=== PATIENT | female | born 1950 | race Hispanic/Latino ===

== ENCOUNTER 2019-08-05 15:46 | Emergency (ER) | payer MEDICARE ==
[~2019-08-05] VITALS: Ht 152.4 cm; Wt 104.3 kg
[2019-08-05] MEDS ORDERED: TRADJENTA5 MG PO (16:27)
[2019-08-05] MEDS ORDERED: METFORMIN HCL850 MG PO (16:27)
[2019-08-05] MEDS ORDERED: GLIPIZIDE5 MG PO (16:27)
[2019-08-05] MEDS ORDERED: LEVOTHYROXINE75 MCG PO (16:27)
[2019-08-05] MEDS ORDERED: IRBESARTAN150 MG PO (16:27)
[2019-08-05 16:40] LABS: BASOPHILS % 0.2 % (0.0-1.0); HEMATOCRIT 36.5 % (34.2-44.1); HEMOGLOBIN 13.1 g/dL (12.0-16.0); LYMPHOCYTES # (AUTO) 0.8 (1.0-3.2); LYMPHOCYTES % 4.5 % (18.0-39.1); MEAN CORPUSCULAR HGB CONC 35.9 g/dL (31-35); MEAN CORPUSCULAR VOLUME 83.7 fL (81-99); MONOCYTES % 5.4 % (4.4-11.3); NEUTROPHILS # (AUTO) 15.9 (2.1-6.9); NEUTROPHILS % 89.2 % (38.7-80.0); PLATELET COUNT 298 x10e3/uL (140-360); RED BLOOD COUNT 4.36 x10e6/uL (3.6-5.1); RED CELL DISTRIBUTION WIDTH 12.3 % (11.7-14.4)
[2019-08-05 16:52] LABS: INR 0.94; PROTHROMBIN TIME 13.1 seconds (11.9-14.5)
[2019-08-05 16:53] LABS: PARTIAL THROMBOPLASTIN TIME 23.5 seconds (23.8-35.5)
[2019-08-05 17:03] LABS: ALANINE AMINOTRANSFERASE 25 IU/L (0-55); ALBUMIN 3.9 g/dL (3.5-5.0); ALBUMIN/GLOBULIN RATIO 1.1 (0.8-2.0); ALKALINE PHOSPHATASE 54 IU/L (40-150); AMYLASE 63 U/L (25-125); ANION GAP 15.7 mmol/L (8-16); BLOOD UREA NITROGEN 27 mg/dL (7-26); BUN/CREATININE RATIO 30 (6-25); CALCIUM 9.5 mg/dL (8.4-10.2); CARBON DIOXIDE 27 mmol/L (22-29); CHLORIDE 102 mmol/L (98-107); CREATINE KINASE 536 IU/L (29-168); CREATININE, SERUM 0.91 mg/dL (0.57-1.11); EST GLOMERULAR FILTRATION RATE > 60 ML/MIN (60-); GLUCOSE 265 mg/dL (74-118); LIPASE 24 U/L (8-78); MAGNESIUM 1.5 MG/DL (1.3-2.1); POTASSIUM 3.7 mmol/L (3.5-5.1); SODIUM 141 mmol/L (136-145)
--- NOTE | 2019-08-05 17:06 | Diagnostic Imaging Report ---
Exam: Head CT without contrast History: Dizziness, nausea, fall Comparison studies: None Technique: Axial images were obtained from the skull base to the vertex. Coronal and sagittal images reconstructed from the axial data. Dose modulation, iterative reconstruction, and/or weight based adjustment of the mA/kV was utilized to reduce the radiation dose to as low as reasonably achievable. Radiation dose: Total DLP: 1494.8 mGy*cm. Estimated effective dose: DLP x 0.015 Intravenous contrast: None Findings: Exam is limited by artifacts related to patient motion. In spite of limitations: Scalp: No abnormalities. Bones: No fractures, blastic or lytic lesions. Brain sulci: Moderately prominent Ventricles: Mild compensatory dilatation. No hydrocephalus. Parenchyma: Mild compensatory dilatation. Peripheral wedge-shaped hypodensity in the left superolateral cerebellum may be an acute to subacute nonhemorrhagic infarct. Cannot further evaluate on this exam. Small chronic lacunar infarct present more superiorly in the left cerebellum. A few small Ill-defined hypodensities in the supratentorial white matter are nonspecific but are most compatible with chronic microvascular ischemic changes. No acute hemorrhage or mass effect. Sellar/suprasellar region: No abnormalities. Craniocervical junction: Patent foramen magnum. No Chiari one malformation. Incidental findings: Chronic inflammatory changes in the right mastoids which are partially opacified with cirrhotic changes. IMPRESSION: Exam limited by artifacts related to patient motion. In spite of limitations: 1. Peripheral left cerebellar hypodensity may reflect acute to subacute infarct. Recommend brain MRI to further evaluate. 2. No acute hemorrhage or other gross acute abnormalities. 3. Moderate generalized brain volume loss. 4. Mild chronic microvascular ischemic changes small chronic left cerebellar lacunar infarct. Signed by: Dr. Fernando Hunt M.D. on 08/05/2019 5:02 PM
[2019-08-05 17:10] LABS: BILIRUBIN,URINE NEGATIVE (NEGATIVE); CLARITY,URINE CLEAR (CLEAR); COLOR,URINE YELLOW (YELLOW); KETONES,URINE 1+ (NEGATIVE); LEUKOCYTE ESTERASE ,URINE NEGATIVE (NEGATIVE); NITRITE,URINE NEGATIVE (NEGATIVE); URINE UROBILINOGEN 0.2 mg/dL (0.2 - 1)
--- NOTE | 2019-08-05 17:12 | Diagnostic Imaging Report ---
History: Trauma, fall Comparison studies: None Technique: Axial images were obtained through the cervical region.. Coronal and sagittal images reconstructed from the axial data.. Intravenous contrast: None Findings: Fractures: None. Atlantoaxial articulation: Intact. Alignment: Straightened cervical curvature may be positional. Cervicomedullary junction: No abnormalities. The foramen magnum is patent. Soft tissues: No gross acute abnormalities. Vertebrae: No fractures, infection or neoplasm. Degenerative changes: Multilevel disc degeneration, mild from C2 to C5 and moderate from C5 to C7. Prominent anterior bridging osteophytes C4 to C7 indent the prevertebral soft tissues. No significant canal stenosis. Moderate facet arthrosis on the left at C2-C3 with lytic changes which may be related to changes of synovitis. Multilevel uncovertebral and facet arthrosis. Moderate left C2-C3 foraminal stenosis due to uncovertebral facet arthrosis. Incidental findings: Partially opacified right mastoids. Atherosclerotic calcifications in the carotid siphons. Anatomical variant retropharyngeal course of the carotid siphons and internal carotid arteries. IMPRESSION: 1. No cervical spine fracture or subluxation. 2. Multilevel degenerative changes as described. 3. Ligament, spinal cord and or vascular abnormalities cannot be excluded on the basis of this examination Signed by: Dr. Fernando Hunt M.D. on 08/05/2019 5:09 PM
[2019-08-05 17:14] LABS: PROTEIN,URINE DIPSTICK 3+ (NEGATIVE)
[2019-08-05 17:25] LABS: RBC,URINE >50 /HPF (0-5); WBC,URINE (MAN) 0-5 /HPF (0-5)
[2019-08-05] MEDS: SODIUM CHLORIDE 0.9% 1000ML 1,000 ML IV SCH (17:29)
[2019-08-05] MEDS: PANTOPRAZOLE 40 MG 10ML VIAL IV ONE (17:29)
--- NOTE | 2019-08-05 18:21 | Diagnostic Imaging Report ---
EXAMINATION: CHEST SINGLE (PORTABLE) INDICATION:^fall, possible dizziness COMPARISON: None FINDINGS: AP view LUNGS: There are low lung volumes There is mild prominence of the central pulmonary vasculature, consistent with pulmonary venous congestion. PLEURA: No pleural effusion or pneumothorax. HEART AND MEDIASTINUM: Cardiac size is mildly enlarged. BONES AND SOFT TISSUES: There are degenerative changes in the thoracic spine. Soft tissues are unremarkable. UPPER ABDOMEN: No free air under the diaphragm. IMPRESSION: Mild pulmonary venous congestion. Signed by: Xander Mcghee MD on 08/05/2019 6:17 PM
--- NOTE | 2019-08-05 18:50 | Diagnostic Imaging Report ---
EXAM: CT Abdomen and Pelvis WITH contrast INDICATION: ^nausa and vomiting COMPARISON: None. TECHNIQUE: Abdomen and pelvis were scanned utilizing a multidetector helical scanner from the lung base to the pubic symphysis after administration of IV contrast. Coronal and sagittal reformations were obtained. Dose modulation, iterative reconstruction, and/or weight based adjustment of the mA/kV was utilized to reduce the radiation dose to as low as reasonably achievable. Routine protocol was performed. Scan was performed when during portal venous phase. IV CONTRAST: 150 mL of Omnipaque 300 ORAL CONTRAST: Water COMPLICATIONS: None RADIATION DOSE: Total DLP: 862.64 mGy*cm Estimated effective dose: (DLP x 0.015 x size factor) mSv CTDIvol has been reviewed. It is below the limits set by the Radiation Protocol Committee (RPC). FINDINGS: LINES and TUBES: None. LOWER THORAX: There is bibasilar atelectasis. HEPATOBILIARY: No focal hepatic lesions. No biliary ductal dilation. GALLBLADDER: No radio-opaque stones or sludge. No wall thickening. SPLEEN: No splenomegaly. PANCREAS: No focal masses or ductal dilatation. ADRENALS: Left lateral nodule measures 1.8 x 1.7 x 1.5 cm, indeterminate. 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 The upper pole ureter attaches to the superior pole of the bladder with a small diverticulum noted. Multiple nonobstructive bilateral renal calculi are seen measuring up to 1.7 cm on the right. There is no right hydronephrosis. Multiple bilateral cortical scars are seen. GI TRACT: No abnormal distention, wall thickening, or evidence of bowel obstruction. Appendix is normal. PELVIC ORGANS/BLADDER: Unremarkable. LYMPH NODES: No lymphadenopathy. VESSELS: Unremarkable. PERITONEUM / RETROPERITONEUM: No free air or fluid. BONES: Unremarkable. SOFT TISSUES: There is a small fat containing para-umbilical hernia. 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 No calculus is noted throughout the course of ureter. Multiple nonobstructive bilateral renal calculi are seen measuring up to 1.7 cm on the right. Signed by: Xander Mcghee MD on 08/05/2019 6:47 PM
[2019-08-05 18:56] VITALS: BP 145/92
--- NOTE | 2019-08-05 18:58 | NUR ---
report given to rina retana at [facility]
--- NOTE | 2019-08-05 19:00 | NUR ---
transport called for pt eta 30-45 min
[2019-08-05] MEDS ORDERED: SODIUM CHLORIDE 0.9% 50ML 50 ML ONE (20:20)
[2019-08-05] MEDS ORDERED: IOPAMIDOL 370 MG/ML 200 ML INFUS..BTL INJ ONE (20:20)
--- NOTE | 2019-08-05 20:45 | NUR ---
[facility] HERE AT THIS TIME FOR PT TRANSPORT TO [facility].
== END 2019-08-05 20:56 | disposition other institution (70) ==
LOC: ER 15:46
DX: S00.83XA Contusion of other part of head, initial encounter (principal); S00.531A Contusion of lip, initial encounter; M62.82 Rhabdomyolysis; I63.9 Cerebral infarction, unspecified; W01.0XXA Fall on same level from slipping, tripping and stumbling without subsequent striking against object, initial encounter; Y92.008 Other place in unspecified non-institutional (private) residence as the place of occurrence of the external cause; I10 Essential (primary) hypertension; E11.9 Type 2 diabetes mellitus without complications; E03.9 Hypothyroidism, unspecified
CPT/HCPCS: 36415; 70450; 71045; 72125; 74177; 80053; 81001; 82150; 82270; 82550; 82553; 82948; 83690; 83735; 83880; 84484; 85025; 85610; 85730; 86850; 86900; 87086; 93005; 99285; C9113; J7030; Q9967

== ENCOUNTER 2020-10-15 21:11 | Inpatient (IN) | payer MEDICARE, OTHER ==
[~2020-10-15] VITALS: Ht 152.4 cm; Wt 104.3 kg
[~2020-10-15 21:11] MED LIST: GLIPIZIDE5 MG PO; IRBESARTAN150 MG PO; LEVOTHYROXINE75 MCG PO; METFORMIN HCL850 MG PO; TRADJENTA5 MG PO
[2020-10-15] MEDS ORDERED: SODIUM CHLORIDE 0.9% 1000ML 1,000 ML IV STA (21:15)
[2020-10-15] MEDS ORDERED: ONDANSETRON HCL INJ 2MG/ML 2ML 2 MG/ML VIAL IV STA (21:15)
[2020-10-15] MEDS ORDERED: KETOROLAC TROMETHAMINE 30 MG/ML VIAL IV STA (21:18)
[2020-10-15] MEDS ORDERED: ACETAMINOPHEN 1000 MG/100 ML 100 ML IV ONE (22:01)
[2020-10-15] MEDS ORDERED: PIPER-TAZ 3.375 GM 50 ML IV STA (22:02)
[2020-10-15 22:17] LABS: BASOPHILS % 0.3 % (0.0-1.0); HEMATOCRIT 27.8 % (34.2-44.1); HEMOGLOBIN 9.4 g/dL (12.0-16.0); LYMPHOCYTES # (AUTO) 0.1 (1.0-3.2); LYMPHOCYTES % 0.8 % (18.0-39.1); MEAN CORPUSCULAR HEMOGLOBIN 28.5 pg (28-32); MEAN CORPUSCULAR HGB CONC 33.8 g/dL (31-35); MEAN CORPUSCULAR VOLUME 84.2 fL (81-99); MONOCYTES % 0.3 % (4.4-11.3); NEUTROPHILS # (AUTO) 9.4 (2.1-6.9); NEUTROPHILS % 98.2 % (38.7-80.0); PLATELET COUNT 347 x10e3/uL (140-360); RED CELL DISTRIBUTION WIDTH 13.2 % (11.7-14.4)
[2020-10-15 22:38] LABS: ALBUMIN 2.8 g/dL (3.5-5.0); ALBUMIN/GLOBULIN RATIO 0.6 (0.8-2.0); ANION GAP 20.7 mmol/L (8-16); CALCIUM 7.7 mg/dL (8.4-10.2); CREATININE, SERUM 2.71 mg/dL (0.57-1.11)
[2020-10-15 22:42] LABS: POTASSIUM 5.7 mmol/L (3.5-5.1)
[2020-10-15] MEDS ORDERED: DEXTROSE 50% SYRINGE 50 ML IV STA (23:07)
[2020-10-15] MEDS ORDERED: SOD POLYSTYRENE SULFONATE SUSP 15 GM/60 ML BTL PO STA (23:07)
[2020-10-15] MEDS ORDERED: CALCIUM GLUCONATE 10% INJ 0.465 MEQ/ML VIAL IV STA (23:07)
[2020-10-15] MEDS ORDERED: SODIUM BICARBONATE 8.4% INJ 50 ML SYR IV STA (23:07)
[2020-10-15] MEDS ORDERED: LACTULOSE SYRUP 20 GM/30 ML UDC PO STA (23:07)
[2020-10-15] MEDS ORDERED: SODIUM CHLORIDE 0.9% 1000ML 1,000 ML IV ONE (23:30)
[2020-10-15] MEDS ORDERED: INSULIN REGULAR, HUMAN 100 UNIT/1 ML 3ML VIAL IV ONE (23:30)
[2020-10-16] MEDS ORDERED: SODIUM CHLORIDE 0.9% 1000ML 2,000 ML ONE (00:14)
[2020-10-16 00:23] LABS: CLARITY,URINE CLOUDY (CLEAR); COLOR,URINE YELLOW (YELLOW)
[2020-10-16 00:26] LABS: KETONES,URINE NEGATIVE (NEGATIVE); LEUKOCYTE ESTERASE ,URINE LARGE (NEGATIVE); NITRITE,URINE NEGATIVE (NEGATIVE); PROTEIN,URINE DIPSTICK 2+ (NEGATIVE); URINE UROBILINOGEN 1 mg/dL (0.2 - 1)
[2020-10-16 00:31] LABS: BACTERIA,URINE MODERATE /HPF; EPITHELIAL CELLS,URINE FEW /LPF; WBC,URINE (MAN) >50 /HPF (0-5)
[2020-10-16] MEDS ORDERED: NOREPINEPHRINE 8 MG/D5W 250 ML 250 ML ONE ×2 (00:59→19:42)
[2020-10-16] MEDS ORDERED: NOREPINEPHRINE INJ 4MG/4ML 8 MG in DEXTROSE 5% 250ML 250 ML IV ONE (01:00)
[2020-10-16] MEDS ORDERED: SODIUM CHLORIDE 0.9% 1000ML 1,000 ML IV ONE ×2 (02:00)
[2020-10-16 02:15] VITALS: BP 88/59
[2020-10-16] MEDS ORDERED: ASPIRIN 81 MG CHEW TAB PO ONE (03:45)
[2020-10-16 06:31] LABS: CREATINE KINASE MB 2.5 ng/mL (0-5.0)
[2020-10-16 06:48] LABS: BASOPHILS # (AUTO) 0.1 (0.0-0.1); BASOPHILS % 0.3 % (0.0-1.0); EOSINOPHILS # (AUTO) 0.3 (0.0-0.4); HEMATOCRIT 24.7 % (34.2-44.1); HEMOGLOBIN 8.3 g/dL (12.0-16.0); LYMPHOCYTES # (AUTO) 0.3 (1.0-3.2); LYMPHOCYTES % 1.2 % (18.0-39.1); MEAN CORPUSCULAR HGB CONC 33.6 g/dL (31-35); MEAN CORPUSCULAR VOLUME 86.4 fL (81-99); MONOCYTES % 3.7 % (4.4-11.3); NEUTROPHILS # (AUTO) 23.8 (2.1-6.9); NEUTROPHILS % 92.4 % (38.7-80.0); PLATELET COUNT 301 x10e3/uL (140-360); RED BLOOD COUNT 2.86 x10e6/uL (3.6-5.1); RED CELL DISTRIBUTION WIDTH 13.3 % (11.7-14.4)
[2020-10-16 06:58] LABS: ALBUMIN 2.4 g/dL (3.5-5.0); ALBUMIN/GLOBULIN RATIO 0.9 (0.8-2.0); ANION GAP 17.6 mmol/L (8-16); CREATININE, SERUM 2.48 mg/dL (0.57-1.11); POTASSIUM 4.6 mmol/L (3.5-5.1)
[2020-10-16 07:05] LABS: CALCIUM 6.6 mg/dL (8.4-10.2)
[2020-10-16] MEDS ORDERED: ONDANSETRON HCL INJ 2MG/ML 2ML 2 MG/ML VIAL IV PRN (08:15)
[2020-10-16] MEDS ORDERED: MEROPENEM 500MG/ NS 50ML 500 MG in MEROPENEM 500MG/ NS 50ML 50 ML IV SCH (08:15)
[2020-10-16] MEDS ORDERED: DOCUSATE SODIUM 100 MG CAP PO PRN (08:15)
[2020-10-16] MEDS ORDERED: MELATONIN 5 MG TABLET PO PRN (08:15)
[2020-10-16] MEDS ORDERED: HYDRALAZINE HCL 20 MG/ML VIAL IV PRN (08:15)
[2020-10-16] MEDS ORDERED: BENZONATATE 100 MG CAP PO PRN (08:15)
[2020-10-16] MEDS ORDERED: ALBUTEROL/IPRATROPIUM 3 ML NEB NEB PRN (08:15)
[2020-10-16] MEDS ORDERED: MORPHINE SULFATE INJ 4 MG/ML INJ 1ML IV PRN (08:15)
[2020-10-16] MEDS ORDERED: GUAIFENESIN/CODEINE 10 ML CUP PO PRN (08:15)
[2020-10-16] MEDS ORDERED: SIMETHICONE 80 MG CHEW PO PRN (08:15)
[2020-10-16] MEDS ORDERED: LIDOCAINE 4% PATCH TP PRN (08:15)
[2020-10-16] MEDS ORDERED: DEXTROSE 50% SYRINGE 50 ML IV PRN (08:15)
[2020-10-16] MEDS ORDERED: HYDROCODONE/APAP 5MG-325MG TAB PO PRN (08:15)
[2020-10-16] MEDS ORDERED: ACETAMINOPHEN 325 MG TAB PO PRN (08:15)
[2020-10-16] MEDS ORDERED: DIPHENHYDRAMINE HCL 25 MG CAP PO PRN (08:15)
[2020-10-16] MEDS ORDERED: SODIUM CHLORIDE 0.9% 1000ML 1,000 ML IV SCH (08:15)
[2020-10-16] MEDS ORDERED: SODIUM BICARBONATE 8.4% 150 ML in DEXTROSE 5% 1,000 ML IV SCH (08:30)
[2020-10-16] MEDS ORDERED: CALCIUM GLUCONATE 10% INJ 9.3 MEQ in SODIUM CHLORIDE 0.9% 100 ML 100 ML IV ONE (08:45)
[2020-10-16 09:00] LABS: INR 1.2
[2020-10-16 09:01] LABS: PARTIAL THROMBOPLASTIN TIME 41.4 seconds (23.8-35.5)
[2020-10-16] MEDS ORDERED: MEROPENEM 500MG/ NS 50ML 50 ML IV SCH (12:00)
[2020-10-16] MEDS ORDERED: LIDOCAINE HCL 1% LOCAL INJ 20 ML VIAL ONE (12:50)
[2020-10-16] MEDS ORDERED: SODIUM CHLORIDE 0.9% 250ML 250 ML ONE (12:50)
[2020-10-16 12:58] LABS: CREATINE KINASE MB 1.7 ng/mL (0-5.0)
[2020-10-16] MEDS ORDERED: IOPAMIDOL 300MG/ML 100 ML INFUS..BTL IV ONE (13:44)
[2020-10-16] MEDS ORDERED: FENTANYL CITRATE/PF 100MCG/2 ML INJ ONE (13:55)
[2020-10-16] MEDS ORDERED: MIDAZOLAM HCL 2 MG/2 ML VIAL ONE (13:55)
[2020-10-16] MEDS ORDERED: NOREPINEPHRINE INJ 4MG/4ML 8 MG in DEXTROSE 5% 250ML 250 ML IV PRN (19:45)
[2020-10-16] MEDS ORDERED: NOREPINEPHRINE 8 MG/D5W 250 ML 250 ML IV PRN (19:45)
[2020-10-16] MEDS ORDERED: MORPHINE SULFATE INJ 2 MG/ML SYR IV PRN (20:00)
== END 2020-10-16 19:39 | disposition short-term general hospital (02) | DRG 871 ==
LOC: ER 21:20 → ERHOLD 10-16 03:37
PROVIDERS: ADMIT Internal Medicine; ATTEND Internal Medicine
PROC: 0T9030Z Drainage of Right Kidney with Drainage Device, Percutaneous Approach (ICD-10-PCS; principal; 2020-10-16)
DX: A41.9 Sepsis, unspecified organism (principal); R65.21 Severe sepsis with septic shock; G91.1 Obstructive hydrocephalus; N17.9 Acute kidney failure, unspecified; N13.6 Pyonephrosis; N20.1 Calculus of ureter; I95.9 Hypotension, unspecified; E11.9 Type 2 diabetes mellitus without complications; E86.0 Dehydration; Z86.73 Personal history of transient ischemic attack (TIA), and cerebral infarction without residual deficits; Z20.822 Contact with and (suspected) exposure to COVID-19
CPT/HCPCS: 36415; 36555; 50430; 51700; 70450; 71045; 74176; 74470; 76942; 80053; 81001; 82550; 82553; 83605; 83690; 83880; 84484; 85025; 85610; 85730; 87040; 87071; 87086; 87186; 87205; 93005; 99285; J0610; J1817; J1885; J2001; J2250; J2405; J2543; J3010; J7030; J7050; J7070; J7799; Q9967; U0002

== ENCOUNTER → 2021-01-10 | Day surgery (SDC) | payer MEDICARE, OTHER ==
[2021-01-08 09:32] LABS: BASOPHILS # (AUTO) 0.1 (0.0-0.1); BASOPHILS % 0.7 % (0.0-1.0); EOSINOPHILS # (AUTO) 0.2 (0.0-0.4); EOSINOPHILS % 2.3 % (0.0-6.0); HEMATOCRIT 30.3 % (34.2-44.1); HEMOGLOBIN 10.2 g/dL (12.0-16.0); LYMPHOCYTES # (AUTO) 1.8 (1.0-3.2); MEAN CORPUSCULAR HEMOGLOBIN 28.9 pg (28-32); MEAN CORPUSCULAR HGB CONC 33.7 g/dL (31-35); MEAN CORPUSCULAR VOLUME 85.8 fL (81-99); MONOCYTES # (AUTO) 1.1 (0.2-0.8); MONOCYTES % 10.9 % (4.4-11.3); NEUTROPHILS # (AUTO) 6.9 (2.1-6.9); NEUTROPHILS % 67.6 % (38.7-80.0); PLATELET COUNT 281 x10e3/uL (140-360); RED BLOOD COUNT 3.53 x10e6/uL (3.6-5.1); RED CELL DISTRIBUTION WIDTH 13.4 % (11.7-14.4)
[2021-01-08 09:50] LABS: ANION GAP 14.1 mmol/L (8-16); BLOOD UREA NITROGEN 41 mg/dL (7-26); BUN/CREATININE RATIO 46 (6-25); CALCIUM 8.2 mg/dL (8.4-10.2); CARBON DIOXIDE 24 mmol/L (22-29); CHLORIDE 103 mmol/L (98-107); EST GLOMERULAR FILTRATION RATE > 60 ML/MIN (60-); GLUCOSE 85 mg/dL (74-118); POTASSIUM 4.1 mmol/L (3.5-5.1); SODIUM 137 mmol/L (136-145)
[~2021-01-10] MED LIST changes: +ATORVASTATIN CA20 MG PO; +B&O 60MG R/S 60 MG SUPP PR ONE; +DEXAMETHASONE SOD PHOS INJ 4 MG/ML VIAL ONE; +GENTAMICIN 80MG/NS 100 ML 200 ML IV ONE; +IOPAMIDOL 300MG/ML 50ML INFUS..BTL IV ONE; +LIDOCAINE HCL 2% LOCAL INJ 5 ML SDV VIAL INJ ONE; +LOSARTAN POTASS25 MG PO; +ONDANSETRON HCL INJ 2MG/ML 2ML 2 MG/ML VIAL ONE; +PHENYLEPHRINE HCL 1% 10 MG/ML VIAL ONE; +PIPERACILLIN/TAZOBAC 3.375 GM VIAL ONE; +POVIDONE IODINE 0.05% 0.05 % ML PO ONE; +PROPOFOL IV EMULSION 10 MG/ML 20 ML VIAL ONE; +SEVOFLURANE INHAL SOLN 250 ML PEN BTL ONE; +SODIUM CHLORIDE 0.9% 50ML 50 ML ONE
[2021-01-10 11:00] VITALS: BP 162/89
== END | disposition home or self-care (01) ==
LOC: OR 05:28
PROVIDERS: ATTEND Urology
DX: N13.2 Hydronephrosis with renal and ureteral calculous obstruction (principal); Z43.6 Encounter for attention to other artificial openings of urinary tract; N95.2 Postmenopausal atrophic vaginitis; N81.6 Rectocele; I49.3 Ventricular premature depolarization; I69.320 Aphasia following cerebral infarction; I69.354 Hemiplegia and hemiparesis following cerebral infarction affecting left non-dominant side; I10 Essential (primary) hypertension; E78.5 Hyperlipidemia, unspecified; E11.9 Type 2 diabetes mellitus without complications; E03.9 Hypothyroidism, unspecified; Z01.810 Encounter for preprocedural cardiovascular examination; Z01.812 Encounter for preprocedural laboratory examination; Z01.818 Encounter for other preprocedural examination; Z20.822 Contact with and (suspected) exposure to COVID-19; Z99.3 Dependence on wheelchair; Z79.84 Long term (current) use of oral hypoglycemic drugs; Z95.818 Presence of other cardiac implants and grafts
CPT/HCPCS: 36415; 50389; 50590; 52332; 71046; 74018; 80048; 83970; 84550; 85025; 87086; 87186; 93005; C1758; C2617; J1100; J1580; J2001; J2370; J2405; J2543; J2704; Q9967; U0002

== ENCOUNTER 2022-02-06 23:49 | Inpatient (IN) | payer MEDICARE, OTHER ==
[~2022-02-06] VITALS: Ht 152.4 cm; Wt 85.0 kg
[~2022-02-06 23:49] MED LIST changes: -B&O 60MG R/S 60 MG SUPP PR ONE; -DEXAMETHASONE SOD PHOS INJ 4 MG/ML VIAL ONE; -GENTAMICIN 80MG/NS 100 ML 200 ML IV ONE; -IOPAMIDOL 300MG/ML 50ML INFUS..BTL IV ONE; -LIDOCAINE HCL 2% LOCAL INJ 5 ML SDV VIAL INJ ONE; -ONDANSETRON HCL INJ 2MG/ML 2ML 2 MG/ML VIAL ONE; -PHENYLEPHRINE HCL 1% 10 MG/ML VIAL ONE; -PIPERACILLIN/TAZOBAC 3.375 GM VIAL ONE; -POVIDONE IODINE 0.05% 0.05 % ML PO ONE; -PROPOFOL IV EMULSION 10 MG/ML 20 ML VIAL ONE; -SEVOFLURANE INHAL SOLN 250 ML PEN BTL ONE; -SODIUM CHLORIDE 0.9% 50ML 50 ML ONE
[2022-02-07 00:35] LABS: CLARITY,URINE CLOUDY (CLEAR); COLOR,URINE YELLOW (YELLOW); KETONES,URINE NEGATIVE (NEGATIVE); LEUKOCYTE ESTERASE ,URINE LARGE (NEGATIVE); NITRITE,URINE NEGATIVE (NEGATIVE); PROTEIN,URINE DIPSTICK 1+ (NEGATIVE); URINE UROBILINOGEN 0.2 mg/dL (0.2 - 1)
[2022-02-07 00:39] LABS: BACTERIA,URINE MODERATE /HPF; EPITHELIAL CELLS,URINE FEW /LPF; WBC,URINE (MAN) >50 /HPF (0-5)
[2022-02-07] MEDS ORDERED: SODIUM CHLORIDE 0.9% 1000ML 1,000 ML IV ONE (01:00)
[2022-02-07 01:12] LABS: BASOPHILS % 0.2 % (0.0-1.0); HEMATOCRIT 25.5 % (34.2-44.1); LYMPHOCYTES # (AUTO) 0.9 (1.0-3.2); LYMPHOCYTES % 3.9 % (18.0-39.1); MEAN CORPUSCULAR HEMOGLOBIN 30.3 pg (28-32); MEAN CORPUSCULAR HGB CONC 35.3 g/dL (31-35); MEAN CORPUSCULAR VOLUME 85.9 fL (81-99); MONOCYTES # (AUTO) 0.9 (0.2-0.8); MONOCYTES % 4.2 % (4.4-11.3); NEUTROPHILS # (AUTO) 20.2 (2.1-6.9); PLATELET COUNT 369 x10e3/uL (140-360); RED BLOOD COUNT 2.97 x10e6/uL (3.6-5.1); RED CELL DISTRIBUTION WIDTH 12.1 % (11.7-14.4)
[2022-02-07 01:30] LABS: ANION GAP 13.6 mmol/L (8-16); CREATININE, SERUM 1.05 mg/dL (0.57-1.11); POTASSIUM 4.6 mmol/L (3.5-5.1)
[2022-02-07] MEDS ORDERED: DEXTROSE 50% SYRINGE 50 ML IV PRN (02:15)
[2022-02-07] MEDS ORDERED: ONDANSETRON HCL INJ 2MG/ML 2ML 2 MG/ML VIAL IV PRN (02:15)
[2022-02-07] MEDS: SODIUM CHLORIDE 0.9% 1000ML 1,000 ML IV SCH ×3 (02:55→22:00)
[2022-02-07] MEDS ORDERED: FERROUS SULFAT325 MG PO (04:09)
[2022-02-07 04:21] VITALS: BP 104/77
[2022-02-07] MEDS: INSULIN REGULAR, HUMAN 100 UNIT/1 ML SQ SCH ×4 (07:30→21:00)
[2022-02-07 08:00] VITALS: BP 112/38
[2022-02-07] MEDS ORDERED: ALBUTEROL/IPRATROPIUM 3 ML NEB NEB PRN (10:30)
[2022-02-07] MEDS ORDERED: DOCUSATE SODIUM 100 MG CAP PO PRN (10:30)
[2022-02-07] MEDS ORDERED: ACETAMINOPHEN 325 MG TAB PO PRN (10:30)
[2022-02-07] MEDS ORDERED: ALBUTEROL/IPRATROPIUM 3 ML NEB NEB SCH (11:00)
[2022-02-07 11:53] VITALS: BP 111/85
[2022-02-07 12:00] VITALS: BP 111/85
[2022-02-07 13:19] LABS: ANION GAP 13.1 mmol/L (8-16); CALCIUM 7.2 mg/dL (8.4-10.2); CREATININE, SERUM 0.85 mg/dL (0.57-1.11); POTASSIUM 4.1 mmol/L (3.5-5.1)
[2022-02-07 15:51] VITALS: BP 105/50
[2022-02-07 16:00] VITALS: BP 105/50
[2022-02-08] VITALS (9 sets, daily range): BP systolic 92–140; BP diastolic 30–86
[2022-02-08 05:26] LABS: BASOPHILS # (AUTO) 0.1 (0.0-0.1); BASOPHILS % 0.8 % (0.0-1.0); EOSINOPHILS # (AUTO) 0.2 (0.0-0.4); EOSINOPHILS % 2.2 % (0.0-6.0); HEMATOCRIT 27.3 % (34.2-44.1); HEMOGLOBIN 8.4 g/dL (12.0-16.0); LYMPHOCYTES # (AUTO) 1.8 (1.0-3.2); LYMPHOCYTES % 17.7 % (18.0-39.1); MEAN CORPUSCULAR HEMOGLOBIN 29.9 pg (28-32); MEAN CORPUSCULAR HGB CONC 30.8 g/dL (31-35); MEAN CORPUSCULAR VOLUME 97.2 fL (81-99); MONOCYTES % 9.6 % (4.4-11.3); NEUTROPHILS # (AUTO) 7.2 (2.1-6.9); PLATELET COUNT 331 x10e3/uL (140-360); RED BLOOD COUNT 2.81 x10e6/uL (3.6-5.1); RED CELL DISTRIBUTION WIDTH 12.5 % (11.7-14.4)
[2022-02-08 05:54] LABS: CALCIUM 7.3 mg/dL (8.4-10.2); CREATININE, SERUM 0.92 mg/dL (0.57-1.11)
[2022-02-08] MEDS: SODIUM CHLORIDE 0.9% 1000ML 1,000 ML IV SCH ×2 (07:00→17:04)
[2022-02-08] MEDS: INSULIN REGULAR, HUMAN 100 UNIT/1 ML SQ SCH ×4 (07:30→22:24)
[2022-02-09] VITALS (8 sets, daily range): BP systolic 94–141; BP diastolic 57–101
[2022-02-09] MEDS: SODIUM CHLORIDE 0.9% 1000ML 1,000 ML IV SCH ×3 (03:12→23:57)
[2022-02-09] MEDS: INSULIN REGULAR, HUMAN 100 UNIT/1 ML SQ SCH ×4 (07:30→21:50)
[2022-02-09] MEDS ORDERED: CEPHALEXIN500 MG PO (10:24)
[2022-02-09] MEDS: CIPROFLOXACIN 500 MG TAB PO SCH (17:07)
[2022-02-09] MEDS: ATORVASTATIN 40 MG TAB PO SCH (21:50)
[2022-02-10] VITALS (8 sets, daily range): BP systolic 88–141; BP diastolic 36–86
[2022-02-10] MEDS: LEVOTHYROXINE SODIUM 75 MCG TAB PO SCH (05:43)
[2022-02-10] MEDS: INSULIN REGULAR, HUMAN 100 UNIT/1 ML SQ SCH ×4 (07:30→20:31)
[2022-02-10] MEDS: CIPROFLOXACIN 500 MG TAB PO SCH ×2 (08:58→17:02)
[2022-02-10] MEDS: SODIUM CHLORIDE 0.9% 1000ML 1,000 ML IV SCH ×2 (10:56→20:28)
[2022-02-10] MEDS ORDERED: ONDANSETRON HCL 4 MG ORAL DISINTEGRATING TAB PO PRN (13:15)
[2022-02-10] MEDS: ATORVASTATIN 40 MG TAB PO SCH (20:28)
[2022-02-11] VITALS (8 sets, daily range): BP systolic 117–138; BP diastolic 61–86
[2022-02-11] MEDS: LEVOTHYROXINE SODIUM 75 MCG TAB PO SCH (05:48)
[2022-02-11] MEDS: SODIUM CHLORIDE 0.9% 1000ML 1,000 ML IV SCH ×2 (05:48→16:29)
[2022-02-11] MEDS: INSULIN REGULAR, HUMAN 100 UNIT/1 ML SQ SCH ×4 (07:30→21:00)
[2022-02-11] MEDS ORDERED: IOPAMIDOL 610MG/1ML 300 MG/ML VIAL IV ONE (08:17)
[2022-02-11] MEDS ORDERED: B&O 60MG R/S 60 MG SUPP PR ONE (08:18)
[2022-02-11] MEDS: CIPROFLOXACIN 500 MG TAB PO SCH ×2 (08:33→16:58)
[2022-02-11] MEDS ORDERED: PHENAZOPYRIDINE HCL 100 MG TAB PO PRN (10:00)
[2022-02-11] MEDS ORDERED: ACETAMINOPHEN/CODEINE 300MG - 30MG TAB PO PRN (10:00)
[2022-02-11 11:06] LABS: BASOPHILS # (AUTO) 0.1 (0.0-0.1); BASOPHILS % 0.7 % (0.0-1.0); EOSINOPHILS # (AUTO) 0.2 (0.0-0.4); EOSINOPHILS % 1.6 % (0.0-6.0); HEMATOCRIT 28.7 % (34.2-44.1); HEMOGLOBIN 9.3 g/dL (12.0-16.0); LYMPHOCYTES # (AUTO) 1.3 (1.0-3.2); LYMPHOCYTES % 12.5 % (18.0-39.1); MEAN CORPUSCULAR HEMOGLOBIN 30.1 pg (28-32); MEAN CORPUSCULAR HGB CONC 32.4 g/dL (31-35); MEAN CORPUSCULAR VOLUME 92.9 fL (81-99); MONOCYTES # (AUTO) 0.3 (0.2-0.8); MONOCYTES % 2.5 % (4.4-11.3); NEUTROPHILS # (AUTO) 8.8 (2.1-6.9); NEUTROPHILS % 82.1 % (38.7-80.0); PLATELET COUNT 381 x10e3/uL (140-360); RED BLOOD COUNT 3.09 x10e6/uL (3.6-5.1); RED CELL DISTRIBUTION WIDTH 12.7 % (11.7-14.4)
[2022-02-11 11:30] LABS: ANION GAP 11.1 mmol/L (8-16); CALCIUM 7.2 mg/dL (8.4-10.2); CREATININE, SERUM 0.88 mg/dL (0.57-1.11); POTASSIUM 4.1 mmol/L (3.5-5.1)
[2022-02-11] MEDS ORDERED: ONDANSETRON HCL INJ 2MG/ML 2ML 2 MG/ML VIAL ONE (12:03)
[2022-02-11] MEDS ORDERED: GENTAMICIN SULFATE 40 MG/ML 2 ML VIAL ONE (12:03)
[2022-02-11] MEDS ORDERED: DEXAMETHASONE SOD PHOS INJ 4 MG/ML SDV ONE (12:03)
[2022-02-11] MEDS ORDERED: POVIDONE IODINE 0.05% 0.05 % ML PO ONE (12:03)
[2022-02-11] MEDS ORDERED: PROPOFOL IV EMULSION 10 MG/ML 20 ML VIAL ONE (12:03)
[2022-02-11] MEDS ORDERED: SEVOFLURANE INHAL SOLN 250 ML PEN BTL ONE (12:03)
[2022-02-11] MEDS ORDERED: PHENYLEPHRINE HCL 1% 10 MG/ML VIAL ONE (12:03)
[2022-02-11] MEDS ORDERED: EPHEDRINE SULFATE INJ 50 MG/ML VIAL ONE (12:03)
[2022-02-11] MEDS ORDERED: LIDOCAINE HCL 2% LOCAL INJ 5 ML SDV VIAL INJ ONE (12:03)
[2022-02-11] MEDS ORDERED: FENTANYL CITRATE/PF 100MCG/2 ML INJ ONE (12:14)
[2022-02-11] MEDS ORDERED: MIDAZOLAM HCL 2 MG/2 ML VIAL ONE (12:14)
[2022-02-11] MEDS ORDERED: PENICILLIN V P500 MG PO (20:21)
[2022-02-11] MEDS ORDERED: PYRIDIUM200 MG PO (20:21)
[2022-02-11] MEDS ORDERED: DIFLUCAN100 MG PO (20:21)
[2022-02-11] MEDS ORDERED: ULTRAM 50MG50 MG PO (20:22)
[2022-02-11] MEDS: ATORVASTATIN 40 MG TAB PO SCH (21:12)
[2022-02-12] VITALS: BP 106/56
== END 2022-02-12 01:21 | disposition home or self-care (01) | DRG 659 ==
LOC: ER 23:57 → ERHOLD 02-07 02:13 → MED/SURG3 02-07 03:16
PROVIDERS: ADMIT Internal Medicine; ATTEND Internal Medicine
PROC: BT141ZZ Fluoroscopy of Kidneys, Ureters and Bladder using Low Osmolar Contrast (ICD-10-PCS; 2022-02-11)
PROC: 0TC18ZZ Extirpation of Matter from Left Kidney, Via Natural or Artificial Opening Endoscopic (ICD-10-PCS; 2022-02-11)
PROC: 0TP98DZ Removal of Intraluminal Device from Ureter, Via Natural or Artificial Opening Endoscopic (ICD-10-PCS; principal; 2022-02-11 08:14)
PROC: 0T788DZ Dilation of Bilateral Ureters with Intraluminal Device, Via Natural or Artificial Opening Endoscopic (ICD-10-PCS; 2022-02-11 08:14)
DX: T83.593A Infection and inflammatory reaction due to other urinary stents, initial encounter (principal); A41.81 Sepsis due to Enterococcus; E87.1 Hypo-osmolality and hyponatremia; N17.9 Acute kidney failure, unspecified; Z68.41 Body mass index [BMI] 40.0-44.9, adult; N13.6 Pyonephrosis; Z87.442 Personal history of urinary calculi; Q90.9 Down syndrome, unspecified; F79 Unspecified intellectual disabilities; I10 Essential (primary) hypertension; E11.9 Type 2 diabetes mellitus without complications; D64.9 Anemia, unspecified; N20.0 Calculus of kidney; E66.01 Morbid (severe) obesity due to excess calories; E83.51 Hypocalcemia; Z96.0 Presence of urogenital implants; B96.89 Other specified bacterial agents as the cause of diseases classified elsewhere; Z91.19 Patient's noncompliance with other medical treatment and regimen; N95.2 Postmenopausal atrophic vaginitis; Z20.822 Contact with and (suspected) exposure to COVID-19
CPT/HCPCS: 36415; 50590; 51700; 74018; 74176; 80048; 81001; 82948; 83605; 83735; 85025; 87040; 87086; 87186; 94640; 94799; 96361; 96372; 99251; 99284; C1758; C1769; C2617; J0696; J1100; J1580; J1817; J2001; J2250; J2370; J2405; J3010; J7030; J7799

== ENCOUNTER 2022-03-11 09:26 | Inpatient (IN) | payer MEDICARE, OTHER ==
[~2022-03-11] VITALS: Ht 162.6 cm; Wt 68.0 kg
[~2022-03-11 09:26] MED LIST changes: +CEPHALEXIN500 MG PO; +DIFLUCAN100 MG PO; +FENTANYL CITRATE/PF 100MCG/2 ML INJ ONE; +FERROUS SULFAT325 MG PO; +FUROSEMIDE40 MG PO; +MIDAZOLAM HCL 2 MG/2 ML VIAL ONE; +PENICILLIN V P500 MG PO; +PYRIDIUM200 MG PO; +ULTRAM 50MG50 MG PO
[2022-03-11 10:39] LABS: BASOPHILS # (AUTO) 0.1 (0.0-0.1); BASOPHILS % 0.7 % (0.0-1.0); EOSINOPHILS # (AUTO) 0.4 (0.0-0.4); EOSINOPHILS % 3.9 % (0.0-6.0); HEMATOCRIT 33.8 % (34.2-44.1); LYMPHOCYTES # (AUTO) 2.6 (1.0-3.2); MEAN CORPUSCULAR HEMOGLOBIN 29.9 pg (28-32); MEAN CORPUSCULAR HGB CONC 32.5 g/dL (31-35); MEAN CORPUSCULAR VOLUME 91.8 fL (81-99); MONOCYTES # (AUTO) 0.7 (0.2-0.8); NEUTROPHILS # (AUTO) 5.9 (2.1-6.9); PLATELET COUNT 348 x10e3/uL (140-360); RED BLOOD COUNT 3.68 x10e6/uL (3.6-5.1); RED CELL DISTRIBUTION WIDTH 12.7 % (11.7-14.4)
[2022-03-11] MEDS ORDERED: CEFTRIAXONE 1 GM VIAL ONE (10:48)
[2022-03-11] MEDS ORDERED: GENTAMICIN 80MG/NS 100 ML 200 ML IV ONE (10:48)
[2022-03-11 10:57] LABS: ANION GAP 17.3 mmol/L (8-16); CALCIUM 8.5 mg/dL (8.4-10.2); CREATININE, SERUM 1.39 mg/dL (0.57-1.11); POTASSIUM 5.3 mmol/L (3.5-5.1)
[2022-03-11] MEDS ORDERED: PHENYLEPHRINE HCL 1% 10 MG/ML VIAL ONE (12:18)
[2022-03-11] MEDS ORDERED: DEXAMETHASONE SOD PHOS INJ 4 MG/ML SDV ONE (12:18)
[2022-03-11] MEDS ORDERED: ONDANSETRON HCL INJ 2MG/ML 2ML 2 MG/ML VIAL ONE (12:18)
[2022-03-11] MEDS ORDERED: SEVOFLURANE INHAL SOLN 250 ML PEN BTL ONE (12:18)
[2022-03-11] MEDS ORDERED: PROPOFOL IV EMULSION 10 MG/ML 20 ML VIAL ONE (12:18)
[2022-03-11] MEDS ORDERED: LIDOCAINE HCL 2% LOCAL INJ 5 ML SDV VIAL INJ ONE (12:18)
[2022-03-11] MEDS ORDERED: ACETAMINOPHEN 1000 MG/100 ML IV ONE (12:18)
[2022-03-11] MEDS ORDERED: POVIDONE IODINE 0.05% 0.05 % ML PO ONE (12:18)
[2022-03-11] MEDS ORDERED: EPHEDRINE SULFATE INJ 50 MG/ML VIAL ONE (12:18)
[2022-03-11] MEDS ORDERED: B&O 60MG R/S 60 MG SUPP PR ONE (12:21)
[2022-03-11] MEDS ORDERED: IOPAMIDOL 610MG/1ML 300 MG/ML VIAL IV ONE (12:21)
[2022-03-11] MEDS ORDERED: FLUCONAZOLE 200 MG/100 ML 100 ML IV ONE (12:49)
[2022-03-11] MEDS ORDERED: ONDANSETRON HCL INJ 2MG/ML 2ML 2 MG/ML VIAL IV PRN (13:45)
[2022-03-11] MEDS ORDERED: PHENAZOPYRIDINE HCL 100 MG TAB PO PRN (13:45)
[2022-03-11] MEDS ORDERED: DIPHENHYDRAMINE HCL 25 MG CAP PO PRN (13:45)
[2022-03-11] MEDS ORDERED: PIPERACILLIN/TAZOBACTAM 3.375 GM VIAL ONE (15:07)
[2022-03-11 15:49] LABS: BASOPHILS # (AUTO) 0.1 (0.0-0.1); BASOPHILS % 0.7 % (0.0-1.0); EOSINOPHILS # (AUTO) 0.3 (0.0-0.4); EOSINOPHILS % 2.5 % (0.0-6.0); HEMATOCRIT 32.5 % (34.2-44.1); HEMOGLOBIN 10.3 g/dL (12.0-16.0); LYMPHOCYTES # (AUTO) 3.5 (1.0-3.2); LYMPHOCYTES % 34.1 % (18.0-39.1); MEAN CORPUSCULAR HEMOGLOBIN 29.7 pg (28-32); MEAN CORPUSCULAR HGB CONC 31.7 g/dL (31-35); MEAN CORPUSCULAR VOLUME 93.7 fL (81-99); MONOCYTES # (AUTO) 0.8 (0.2-0.8); NEUTROPHILS # (AUTO) 5.6 (2.1-6.9); NEUTROPHILS % 54.5 % (38.7-80.0); PLATELET COUNT 298 x10e3/uL (140-360); RED BLOOD COUNT 3.47 x10e6/uL (3.6-5.1); RED CELL DISTRIBUTION WIDTH 12.9 % (11.7-14.4)
[2022-03-11 16:04] VITALS: BP 160/73
[2022-03-11 16:04] LABS: ANION GAP 17.9 mmol/L (8-16); CREATININE, SERUM 1.28 mg/dL (0.57-1.11); POTASSIUM 4.9 mmol/L (3.5-5.1)
[2022-03-11 16:05] VITALS: BP 102/70
[2022-03-11 16:56] VITALS: BP 102/70
[2022-03-11] MEDS: FLUCONAZOLE 100 MG/NS 50 ML 50 ML IV SCH (17:34)
[2022-03-11] MEDS: DOCUSATE SODIUM 100 MG CAP PO SCH (17:34)
[2022-03-11] MEDS: SODIUM CHLORIDE 0.9% 1000ML 1,000 ML IV SCH ×2 (17:35→21:13)
[2022-03-11] MEDS ORDERED: SODIUM CHLORIDE 0.9% 250ML 250 ML ONE (17:54)
[2022-03-11 19:52] VITALS: BP 130/69
[2022-03-11 21:00] VITALS: BP 130/69
[2022-03-12] VITALS (8 sets, daily range): BP systolic 97–146; BP diastolic 39–88
[2022-03-12 07:01] LABS: BASOPHILS # (AUTO) 0.1 (0.0-0.1); BASOPHILS % 0.7 % (0.0-1.0); EOSINOPHILS # (AUTO) 0.4 (0.0-0.4); EOSINOPHILS % 4.2 % (0.0-6.0); HEMATOCRIT 28.4 % (34.2-44.1); HEMOGLOBIN 9.2 g/dL (12.0-16.0); LYMPHOCYTES % 20.4 % (18.0-39.1); MEAN CORPUSCULAR HEMOGLOBIN 29.6 pg (28-32); MEAN CORPUSCULAR HGB CONC 32.4 g/dL (31-35); MEAN CORPUSCULAR VOLUME 91.3 fL (81-99); MONOCYTES # (AUTO) 0.9 (0.2-0.8); MONOCYTES % 9.5 % (4.4-11.3); NEUTROPHILS # (AUTO) 6.3 (2.1-6.9); NEUTROPHILS % 64.8 % (38.7-80.0); PLATELET COUNT 285 x10e3/uL (140-360); RED BLOOD COUNT 3.11 x10e6/uL (3.6-5.1); RED CELL DISTRIBUTION WIDTH 12.7 % (11.7-14.4)
[2022-03-12 07:21] LABS: ANION GAP 12.4 mmol/L (8-16); CALCIUM 7.4 mg/dL (8.4-10.2); CREATININE, SERUM 1.43 mg/dL (0.57-1.11); POTASSIUM 5.4 mmol/L (3.5-5.1)
[2022-03-12] MEDS: SODIUM CHLORIDE 0.9% 1000ML 1,000 ML IV SCH ×2 (08:43→17:25)
[2022-03-12] MEDS: DOCUSATE SODIUM 100 MG CAP PO SCH ×2 (08:43→16:10)
[2022-03-12] MEDS ORDERED: DEXTROSE 50% SYRINGE 50 ML IV PRN (09:30)
[2022-03-12] MEDS: INSULIN LISPRO 100 UNIT/1 ML 3ML VIAL SQ SCH ×3 (12:13→21:00)
[2022-03-12] MEDS ORDERED: SOD POLYSTYRENE SULFONATE SUSP 15 GM/60 ML BTL PO ONE (15:00)
[2022-03-12] MEDS: FLUCONAZOLE 100 MG/NS 50 ML 50 ML IV SCH (17:17)
[2022-03-12] MEDS: ATORVASTATIN 40 MG TAB PO SCH (20:54)
[2022-03-13] VITALS (8 sets, daily range): BP systolic 112–154; BP diastolic 66–95
[2022-03-13] MEDS: LEVOTHYROXINE SODIUM 75 MCG TAB PO SCH (05:34)
[2022-03-13] MEDS: SODIUM CHLORIDE 0.9% 1000ML 1,000 ML IV SCH ×2 (05:35→17:37)
[2022-03-13 06:42] LABS: BASOPHILS # (AUTO) 0.1 (0.0-0.1); BASOPHILS % 0.6 % (0.0-1.0); EOSINOPHILS # (AUTO) 0.3 (0.0-0.4); EOSINOPHILS % 2.9 % (0.0-6.0); LYMPHOCYTES # (AUTO) 1.9 (1.0-3.2); LYMPHOCYTES % 21.6 % (18.0-39.1); MEAN CORPUSCULAR HEMOGLOBIN 29.1 pg (28-32); MEAN CORPUSCULAR HGB CONC 32.1 g/dL (31-35); MEAN CORPUSCULAR VOLUME 90.6 fL (81-99); MONOCYTES # (AUTO) 0.8 (0.2-0.8); NEUTROPHILS # (AUTO) 5.9 (2.1-6.9); NEUTROPHILS % 65.5 % (38.7-80.0); PLATELET COUNT 260 x10e3/uL (140-360); RED BLOOD COUNT 3.09 x10e6/uL (3.6-5.1); RED CELL DISTRIBUTION WIDTH 12.8 % (11.7-14.4)
[2022-03-13 07:09] LABS: ANION GAP 11.9 mmol/L (8-16); CALCIUM 7.6 mg/dL (8.4-10.2); CREATININE, SERUM 1.05 mg/dL (0.57-1.11); POTASSIUM 4.9 mmol/L (3.5-5.1)
[2022-03-13] MEDS: INSULIN LISPRO 100 UNIT/1 ML 3ML VIAL SQ SCH ×4 (07:30→20:34)
[2022-03-13] MEDS: FERROUS SULFATE 325 MG TAB PO SCH (09:04)
[2022-03-13] MEDS: DOCUSATE SODIUM 100 MG CAP PO SCH ×2 (09:04→17:37)
[2022-03-13] MEDS: FLUCONAZOLE 100 MG/NS 50 ML 50 ML IV SCH (17:38)
[2022-03-13] MEDS ORDERED: ACETAMINOPHEN 325 MG TAB PO ONE (19:00)
[2022-03-13] MEDS ORDERED: DEXTROSE 5% IV ONE (19:45)
[2022-03-13] MEDS ORDERED: AMPHOTERICIN B LIPID COMPLEX IV ONE (19:45)
[2022-03-13] MEDS: ATORVASTATIN 40 MG TAB PO SCH (20:36)
[2022-03-14] VITALS (7 sets, daily range): BP systolic 94–128; BP diastolic 57–74
[2022-03-14] MEDS: ACETAMINOPHEN/CODEINE 300MG - 30MG TAB PO PRN (01:46)
[2022-03-14] MEDS: LEVOTHYROXINE SODIUM 75 MCG TAB PO SCH (06:25)
[2022-03-14 06:42] LABS: BASOPHILS # (AUTO) 0.1 (0.0-0.1); BASOPHILS % 0.5 % (0.0-1.0); EOSINOPHILS # (AUTO) 0.1 (0.0-0.4); EOSINOPHILS % 0.6 % (0.0-6.0); HEMOGLOBIN 8.4 g/dL (12.0-16.0); LYMPHOCYTES # (AUTO) 0.9 (1.0-3.2); LYMPHOCYTES % 6.9 % (18.0-39.1); MEAN CORPUSCULAR HEMOGLOBIN 29.5 pg (28-32); MEAN CORPUSCULAR HGB CONC 32.3 g/dL (31-35); MEAN CORPUSCULAR VOLUME 91.2 fL (81-99); MONOCYTES # (AUTO) 0.4 (0.2-0.8); MONOCYTES % 2.9 % (4.4-11.3); NEUTROPHILS # (AUTO) 11.7 (2.1-6.9); NEUTROPHILS % 88.3 % (38.7-80.0); PLATELET COUNT 234 x10e3/uL (140-360); RED BLOOD COUNT 2.85 x10e6/uL (3.6-5.1); RED CELL DISTRIBUTION WIDTH 12.7 % (11.7-14.4)
[2022-03-14 07:13] LABS: ANION GAP 12.3 mmol/L (8-16); CALCIUM 7.3 mg/dL (8.4-10.2); CREATININE, SERUM 1.25 mg/dL (0.57-1.11); POTASSIUM 4.3 mmol/L (3.5-5.1)
[2022-03-14] MEDS: DOCUSATE SODIUM 100 MG CAP PO SCH ×2 (08:25→16:44)
[2022-03-14] MEDS: FERROUS SULFATE 325 MG TAB PO SCH (08:25)
[2022-03-14] MEDS: INSULIN LISPRO 100 UNIT/1 ML 3ML VIAL SQ SCH ×4 (09:26→21:00)
[2022-03-14] MEDS: IRON SUCROSE 100 MG in SODIUM CHLORIDE 0.9% 100 ML 100 ML IV SCH (11:44)
[2022-03-14] MEDS: SODIUM CHLORIDE 0.9% 1000ML 1,000 ML IV SCH ×2 (11:44→18:33)
[2022-03-14] MEDS: ATORVASTATIN 40 MG TAB PO SCH (21:01)
[2022-03-15] VITALS (7 sets, daily range): BP systolic 119–148; BP diastolic 59–79
[2022-03-15] MEDS: LEVOTHYROXINE SODIUM 75 MCG TAB PO SCH (05:09)
[2022-03-15 07:08] LABS: BASOPHILS # (AUTO) 0.1 (0.0-0.1); BASOPHILS % 0.9 % (0.0-1.0); EOSINOPHILS # (AUTO) 0.7 (0.0-0.4); EOSINOPHILS % 9.2 % (0.0-6.0); HEMATOCRIT 27.3 % (34.2-44.1); HEMOGLOBIN 8.6 g/dL (12.0-16.0); LYMPHOCYTES # (AUTO) 2.4 (1.0-3.2); LYMPHOCYTES % 30.1 % (18.0-39.1); MEAN CORPUSCULAR HEMOGLOBIN 29.4 pg (28-32); MEAN CORPUSCULAR HGB CONC 31.5 g/dL (31-35); MEAN CORPUSCULAR VOLUME 93.2 fL (81-99); MONOCYTES # (AUTO) 0.7 (0.2-0.8); MONOCYTES % 8.6 % (4.4-11.3); NEUTROPHILS # (AUTO) 4.1 (2.1-6.9); NEUTROPHILS % 50.6 % (38.7-80.0); PLATELET COUNT 228 x10e3/uL (140-360); RED BLOOD COUNT 2.93 x10e6/uL (3.6-5.1); RED CELL DISTRIBUTION WIDTH 12.8 % (11.7-14.4)
[2022-03-15] MEDS: INSULIN LISPRO 100 UNIT/1 ML 3ML VIAL SQ SCH ×4 (07:30→19:45)
[2022-03-15 07:32] LABS: CALCIUM 7.5 mg/dL (8.4-10.2); CREATININE, SERUM 1.03 mg/dL (0.57-1.11)
[2022-03-15] MEDS: FERROUS SULFATE 325 MG TAB PO SCH (09:17)
[2022-03-15] MEDS: DOCUSATE SODIUM 100 MG CAP PO SCH ×2 (09:17→17:00)
[2022-03-15] MEDS: FLUCONAZOLE 100 MG TAB PO SCH (09:17)
[2022-03-15] MEDS: SODIUM CHLORIDE 0.45% 1,000 ML IV SCH ×2 (10:15→19:48)
[2022-03-15] MEDS: IRON SUCROSE 100 MG in SODIUM CHLORIDE 0.9% 100 ML 100 ML IV SCH (11:00)
[2022-03-15] MEDS: OYST-CAL-D 500MG TABLET PO SCH (12:15)
[2022-03-15] MEDS ORDERED: AMPHOTERICIN B LIPID COMPLEX IV ONE (14:00)
[2022-03-15] MEDS: ATORVASTATIN 40 MG TAB PO SCH ×2 (19:45→20:20)
[2022-03-16] VITALS (7 sets, daily range): BP systolic 128–141; BP diastolic 66–78
[2022-03-16] MEDS: LEVOTHYROXINE SODIUM 75 MCG TAB PO SCH (05:29)
[2022-03-16] MEDS: SODIUM CHLORIDE 0.45% 1,000 ML IV SCH ×3 (06:15→23:48)
[2022-03-16 06:35] LABS: ANION GAP 10.8 mmol/L (8-16); CALCIUM 7.6 mg/dL (8.4-10.2); CREATININE, SERUM 0.9 mg/dL (0.57-1.11); POTASSIUM 3.8 mmol/L (3.5-5.1)
[2022-03-16] MEDS: INSULIN LISPRO 100 UNIT/1 ML 3ML VIAL SQ SCH ×4 (07:30→21:00)
[2022-03-16] MEDS: OYST-CAL-D 500MG TABLET PO SCH (09:50)
[2022-03-16] MEDS: DOCUSATE SODIUM 100 MG CAP PO SCH ×2 (09:50→18:08)
[2022-03-16] MEDS: FLUCONAZOLE 100 MG TAB PO SCH (09:50)
[2022-03-16] MEDS: IRON SUCROSE 100 MG in SODIUM CHLORIDE 0.9% 100 ML 100 ML IV SCH (11:39)
[2022-03-16] MEDS ORDERED: DEXTROSE 5% IV ONE (13:00)
[2022-03-16] MEDS ORDERED: AMPHOTERICIN B LIPID COMPLEX IV ONE (13:00)
[2022-03-16] MEDS: ATORVASTATIN 40 MG TAB PO SCH (21:24)
[2022-03-16] MEDS: ACETAMINOPHEN/CODEINE 300MG - 30MG TAB PO PRN (21:25)
[2022-03-17] VITALS (7 sets, daily range): BP systolic 109–135; BP diastolic 65–80
[2022-03-17 06:11] LABS: BASOPHILS # (AUTO) 0.1 (0.0-0.1); EOSINOPHILS # (AUTO) 0.2 (0.0-0.4); EOSINOPHILS % 2.9 % (0.0-6.0); HEMATOCRIT 26.3 % (34.2-44.1); HEMOGLOBIN 8.7 g/dL (12.0-16.0); LYMPHOCYTES # (AUTO) 1.6 (1.0-3.2); LYMPHOCYTES % 27.3 % (18.0-39.1); MEAN CORPUSCULAR HEMOGLOBIN 29.4 pg (28-32); MEAN CORPUSCULAR HGB CONC 33.1 g/dL (31-35); MEAN CORPUSCULAR VOLUME 88.9 fL (81-99); MONOCYTES # (AUTO) 0.4 (0.2-0.8); MONOCYTES % 6.8 % (4.4-11.3); NEUTROPHILS # (AUTO) 3.6 (2.1-6.9); NEUTROPHILS % 61.5 % (38.7-80.0); PLATELET COUNT 215 x10e3/uL (140-360); RED BLOOD COUNT 2.96 x10e6/uL (3.6-5.1); RED CELL DISTRIBUTION WIDTH 12.5 % (11.7-14.4)
[2022-03-17] MEDS: LEVOTHYROXINE SODIUM 75 MCG TAB PO SCH (06:25)
[2022-03-17 06:40] LABS: CALCIUM 7.4 mg/dL (8.4-10.2); CREATININE, SERUM 1.07 mg/dL (0.57-1.11)
[2022-03-17] MEDS: INSULIN LISPRO 100 UNIT/1 ML 3ML VIAL SQ SCH ×4 (07:30→21:00)
[2022-03-17] MEDS: FLUCONAZOLE 100 MG TAB PO SCH (08:45)
[2022-03-17] MEDS: OYST-CAL-D 500MG TABLET PO SCH (08:45)
[2022-03-17] MEDS: DOCUSATE SODIUM 100 MG CAP PO SCH ×2 (08:45→16:41)
[2022-03-17] MEDS: IRON SUCROSE 100 MG in SODIUM CHLORIDE 0.9% 100 ML 100 ML IV SCH (11:44)
[2022-03-17] MEDS: SODIUM BICARBONATE 8.4% 50 ML in SODIUM CHLORIDE 0.45% 1,000 ML IV SCH (16:58)
[2022-03-17] MEDS ORDERED: ONDANSETRON HCL 4 MG ORAL DISINTEGRATING TAB PO PRN (19:30)
[2022-03-17] MEDS: ATORVASTATIN 40 MG TAB PO SCH (21:00)
[2022-03-18 00:42] VITALS: BP 146/77
[2022-03-18 05:46] VITALS: BP 134/55
[2022-03-18] MEDS: LEVOTHYROXINE SODIUM 75 MCG TAB PO SCH (06:00)
[2022-03-18] MEDS: SODIUM BICARBONATE 8.4% 50 ML in SODIUM CHLORIDE 0.45% 1,000 ML IV SCH (06:30)
[2022-03-18] MEDS: INSULIN LISPRO 100 UNIT/1 ML 3ML VIAL SQ SCH ×2 (07:30→11:50)
[2022-03-18 08:13] VITALS: BP 130/74
[2022-03-18] MEDS: DOCUSATE SODIUM 100 MG CAP PO SCH (09:00)
[2022-03-18] MEDS: FLUCONAZOLE 100 MG TAB PO SCH (09:00)
[2022-03-18] MEDS ORDERED: OYST-CAL-D 500MG TABLET PO SCH (09:00)
[2022-03-18] MEDS: IRON SUCROSE 100 MG in SODIUM CHLORIDE 0.9% 100 ML 100 ML IV SCH (11:00)
[2022-03-18 11:33] VITALS: BP 123/66
== END 2022-03-18 12:34 | disposition home or self-care (01) | DRG 659 ==
LOC: OR 09:26 → PACU V 13:34 → MED/SURG2 15:32
PROVIDERS: ADMIT Urology; ATTEND Internal Medicine
PROC: 0TPD8DZ Removal of Intraluminal Device from Urethra, Via Natural or Artificial Opening Endoscopic (ICD-10-PCS; principal; 2022-03-17)
PROC: 0T788DZ Dilation of Bilateral Ureters with Intraluminal Device, Via Natural or Artificial Opening Endoscopic (ICD-10-PCS; 2022-03-17)
PROC: BT141ZZ Fluoroscopy of Kidneys, Ureters and Bladder using Low Osmolar Contrast (ICD-10-PCS; 2022-03-17)
PROC: 0TC78ZZ Extirpation of Matter from Left Ureter, Via Natural or Artificial Opening Endoscopic (ICD-10-PCS; 2022-03-17)
DX: T83.592A Infection and inflammatory reaction due to indwelling ureteral stent, initial encounter (principal); N17.0 Acute kidney failure with tubular necrosis; N13.8 Other obstructive and reflux uropathy; N13.6 Pyonephrosis; N17.9 Acute kidney failure, unspecified; B37.49 Other urogenital candidiasis; R33.8 Other retention of urine; E78.5 Hyperlipidemia, unspecified; M10.9 Gout, unspecified; E87.5 Hyperkalemia; N95.2 Postmenopausal atrophic vaginitis; Z74.01 Bed confinement status; Z99.89 Dependence on other enabling machines and devices; Z20.822 Contact with and (suspected) exposure to COVID-19; E87.8 Other disorders of electrolyte and fluid balance, not elsewhere classified; N15.8 Other specified renal tubulo-interstitial diseases; Z86.73 Personal history of transient ischemic attack (TIA), and cerebral infarction without residual deficits; R35.1 Nocturia; I12.9 Hypertensive chronic kidney disease with stage 1 through stage 4 chronic kidney disease, or unspecified chronic kidney disease; N18.9 Chronic kidney disease, unspecified; F79 Unspecified intellectual disabilities; E11.9 Type 2 diabetes mellitus without complications
CPT/HCPCS: 0223U; 36415; 51798; 71046; 74018; 74420; 80048; 82948; 83735; 84132; 84550; 85025; 87086; 88300; 88304; 88312; 93005; 94799; 96372; C1766; C1769; C2617; J0696; J1100; J1450; J1580; J1756; J2001; J2250; J2370; J2405; J2543; J3010; J7030; J7050; J7060

== ENCOUNTER → 2022-05-15 | Outpatient (CLI) | payer OTHER ==
[~2022-05-15] MED LIST changes: -FENTANYL CITRATE/PF 100MCG/2 ML INJ ONE; +LASIX20 MG PO; +METFORMIN HCL500 MG PO; -MIDAZOLAM HCL 2 MG/2 ML VIAL ONE
== END ==
LOC: US 12:22
PROVIDERS: ATTEND Urology
DX: N20.0 Calculus of kidney (principal); N39.0 Urinary tract infection, site not specified
CPT/HCPCS: 74018; 76770

== ENCOUNTER 2022-05-18 19:53 | Inpatient (IN) | payer MEDICARE, OTHER ==
[~2022-05-18] VITALS: Ht 162.6 cm; Wt 68.0 kg
[~2022-05-18 19:53] MED LIST changes: -LASIX20 MG PO; -METFORMIN HCL500 MG PO
[2022-05-18] MEDS ORDERED: ONDANSETRON HCL INJ 2MG/ML 2ML 2 MG/ML VIAL IV STA (20:07)
[2022-05-18 20:20] LABS: BASOPHILS # (AUTO) 0.1 (0.0-0.1); BASOPHILS % 0.5 % (0.0-1.0); EOSINOPHILS # (AUTO) 0.2 (0.0-0.4); EOSINOPHILS % 1.5 % (0.0-6.0); HEMATOCRIT 28.9 % (34.2-44.1); LYMPHOCYTES % 19.5 % (18.0-39.1); MEAN CORPUSCULAR HEMOGLOBIN 29.9 pg (28-32); MEAN CORPUSCULAR HGB CONC 34.6 g/dL (31-35); MEAN CORPUSCULAR VOLUME 86.3 fL (81-99); MONOCYTES # (AUTO) 1.3 (0.2-0.8); MONOCYTES % 8.9 % (4.4-11.3); NEUTROPHILS # (AUTO) 10.5 (2.1-6.9); PLATELET COUNT 523 x10e3/uL (140-360); RED BLOOD COUNT 3.35 x10e6/uL (3.6-5.1); RED CELL DISTRIBUTION WIDTH 13.6 % (11.7-14.4)
[2022-05-18 20:22] LABS: CLARITY,URINE HAZY (CLEAR); COLOR,URINE YELLOW (YELLOW); KETONES,URINE NEGATIVE (NEGATIVE); LEUKOCYTE ESTERASE ,URINE LARGE (NEGATIVE); NITRITE,URINE POSITIVE (NEGATIVE); PROTEIN,URINE DIPSTICK 1+ (NEGATIVE); URINE UROBILINOGEN 0.2 mg/dL (0.2 - 1)
[2022-05-18 20:34] LABS: BACTERIA,URINE MODERATE /HPF; WBC,URINE (MAN) 21-50 /HPF (0-5)
[2022-05-18 20:35] LABS: AMORPHOUS SEDIMENT,URINE MODERATE (FEW); RENAL EPITHELIAL CELLS,URINE RARE
[2022-05-18 20:39] LABS: ALBUMIN 2.8 g/dL (3.5-5.0); ALBUMIN/GLOBULIN RATIO 0.8 (0.8-2.0); ANION GAP 17.2 mmol/L (8-16); CALCIUM 7.7 mg/dL (8.4-10.2); CREATININE, SERUM 1.26 mg/dL (0.57-1.11)
[2022-05-18 20:44] LABS: POTASSIUM 6.2 mmol/L (3.5-5.1)
[2022-05-18] MEDS ORDERED: SODIUM CHLORIDE 0.9% 1000ML 1,000 ML IV ONE (20:45)
[2022-05-18 20:46] LABS: CREATINE KINASE MB 8.1 ng/mL (0-5.0)
[2022-05-18] MEDS ORDERED: DEXTROSE 50% SYRINGE 50 ML IV STA ×3 (20:46→23:33)
[2022-05-18] MEDS ORDERED: CALCIUM CHLORIDE 10% 1.36 MEQ/ML 10ML SYR IV STA (20:46)
[2022-05-18] MEDS ORDERED: SODIUM BICARBONATE 8.4% INJ 50 ML SYR IV STA ×2 (20:46)
[2022-05-18] MEDS ORDERED: INSULIN REGULAR, HUMAN 100 UNIT/1 ML IV ONE (21:00)
[2022-05-18] MEDS ORDERED: FUROSEMIDE INJ 10 MG/ML 4 ML VIAL IV ONE (23:00)
[2022-05-18] MEDS ORDERED: DEXTROSE 50% SYRINGE 50 ML IV ONE (23:02)
[2022-05-18] MEDS ORDERED: LASIX20 MG PO (23:08)
[2022-05-18] MEDS ORDERED: METFORMIN HCL500 MG PO (23:08)
[2022-05-18] MEDS ORDERED: DEXTROSE 50% SYRINGE 50 ML IV PRN (23:15)
[2022-05-18] MEDS ORDERED: ONDANSETRON HCL INJ 2MG/ML 2ML 2 MG/ML VIAL IV PRN (23:15)
[2022-05-18] MEDS ORDERED: SODIUM CHLORIDE 0.9% 1000ML 1,000 ML IV SCH (23:15)
[2022-05-18] MEDS ORDERED: DEXTROSE 5%/0.9% SOD CHL 1,000 ML IV ONE ×2 (23:45→23:46)
[2022-05-19] VITALS (8 sets, daily range): BP systolic 90–105; BP diastolic 52–66
[2022-05-19] MEDS ORDERED: SODIUM CHLORIDE 0.9% 1000ML 1,000 ML IV ONE (01:00)
[2022-05-19 06:37] LABS: BASOPHILS # (AUTO) 0.1 (0.0-0.1); BASOPHILS % 0.4 % (0.0-1.0); EOSINOPHILS # (AUTO) 0.2 (0.0-0.4); EOSINOPHILS % 1.9 % (0.0-6.0); HEMATOCRIT 26.6 % (34.2-44.1); HEMOGLOBIN 9.1 g/dL (12.0-16.0); LYMPHOCYTES # (AUTO) 2.1 (1.0-3.2); MEAN CORPUSCULAR HEMOGLOBIN 29.8 pg (28-32); MEAN CORPUSCULAR HGB CONC 34.2 g/dL (31-35); MEAN CORPUSCULAR VOLUME 87.2 fL (81-99); MONOCYTES # (AUTO) 1.1 (0.2-0.8); MONOCYTES % 9.8 % (4.4-11.3); NEUTROPHILS % 69.5 % (38.7-80.0); PLATELET COUNT 466 x10e3/uL (140-360); RED BLOOD COUNT 3.05 x10e6/uL (3.6-5.1); RED CELL DISTRIBUTION WIDTH 13.7 % (11.7-14.4)
[2022-05-19 06:57] LABS: ALBUMIN 2.4 g/dL (3.5-5.0); ALBUMIN/GLOBULIN RATIO 0.8 (0.8-2.0); ANION GAP 14.3 mmol/L (8-16); CALCIUM 7.4 mg/dL (8.4-10.2); CREATININE, SERUM 1.2 mg/dL (0.57-1.11); POTASSIUM 5.3 mmol/L (3.5-5.1)
[2022-05-19] MEDS: INSULIN REGULAR, HUMAN 100 UNIT/1 ML SQ SCH ×4 (07:30→21:00)
[2022-05-19 07:31] LABS: CREATINE KINASE MB 7.8 ng/mL (0-5.0)
[2022-05-19] MEDS ORDERED: SODIUM BICARBONATE 8.4% 50 ML in SODIUM CHLORIDE 0.9% 1000ML 1,000 ML IV SCH (13:00)
[2022-05-19] MEDS: CIPROFLOXACIN 400 MG/D5W 200ML 200 ML IV SCH (13:33)
[2022-05-19] MEDS ORDERED: SODIUM CHLORIDE 0.9% 250ML 250 ML ONE (13:52)
[2022-05-19 16:11] LABS: CREATINE KINASE MB 5.5 ng/mL (0-5.0)
[2022-05-19] MEDS ORDERED: SODIUM BICARBONATE 8.4% 150 ML in DEXTROSE 5% 1,000 ML IV ONE (18:30)
[2022-05-19 19:36] LABS: POTASSIUM,URINE 28.1 mmol/L; SODIUM,URINE < 20 mmol/L
[2022-05-19 19:42] LABS: INR 1.04; PROTHROMBIN TIME 14.5 seconds (11.9-14.5)
[2022-05-20] MEDS: CIPROFLOXACIN 400 MG/D5W 200ML 200 ML IV SCH (00:35)
[2022-05-20 01:31] VITALS: BP 130/66
[2022-05-20 05:51] LABS: BASOPHILS # (AUTO) 0.1 (0.0-0.1); BASOPHILS % 0.8 % (0.0-1.0); EOSINOPHILS # (AUTO) 0.3 (0.0-0.4); EOSINOPHILS % 2.5 % (0.0-6.0); HEMATOCRIT 24.7 % (34.2-44.1); HEMOGLOBIN 8.6 g/dL (12.0-16.0); LYMPHOCYTES # (AUTO) 1.9 (1.0-3.2); LYMPHOCYTES % 18.1 % (18.0-39.1); MEAN CORPUSCULAR HEMOGLOBIN 29.7 pg (28-32); MEAN CORPUSCULAR HGB CONC 34.8 g/dL (31-35); MEAN CORPUSCULAR VOLUME 85.2 fL (81-99); MONOCYTES % 9.5 % (4.4-11.3); NEUTROPHILS # (AUTO) 7.2 (2.1-6.9); NEUTROPHILS % 68.4 % (38.7-80.0); PLATELET COUNT 429 x10e3/uL (140-360)
[2022-05-20 06:06] LABS: INR 1.08
[2022-05-20 06:07] LABS: PARTIAL THROMBOPLASTIN TIME 33.7 seconds (23.8-35.5)
[2022-05-20 06:23] LABS: ALBUMIN 2.3 g/dL (3.5-5.0); ALBUMIN/GLOBULIN RATIO 0.8 (0.8-2.0); ANION GAP 15.4 mmol/L (8-16); CALCIUM 7.2 mg/dL (8.4-10.2); CREATININE, SERUM 1.71 mg/dL (0.57-1.11); POTASSIUM 5.4 mmol/L (3.5-5.1)
[2022-05-20] MEDS: INSULIN REGULAR, HUMAN 100 UNIT/1 ML SQ SCH ×4 (07:30→22:29)
[2022-05-20 09:06] VITALS: BP 104/63
[2022-05-20 11:42] VITALS: BP 100/63
[2022-05-20] MEDS ORDERED: SOD POLYSTYRENE SULFONATE SUSP 15 GM/60 ML BTL PO ONE (12:30)
[2022-05-20] MEDS ORDERED: FUROSEMIDE INJ 10 MG/ML 4 ML VIAL IV ONE (12:30)
[2022-05-20] MEDS ORDERED: SODIUM BICARB 4.2% 150 MEQ in DEXTROSE 5% 1,000 ML IV ONE (12:45)
[2022-05-20] MEDS ORDERED: SODIUM BICARBONATE 8.4% 150 ML in DEXTROSE 5% 1,000 ML IV ONE (12:45)
[2022-05-20] MEDS ORDERED: ALBUMIN 25% 12.5GM 50ML 50 ML IV ONE (14:53)
[2022-05-20 15:23] LABS: BODY FLUID APPEARANCE SL.CLOUDY; BODY FLUID COLOR YELLOW; BODY FLUID TYPE PERITONEAL
[2022-05-20 15:47] VITALS: BP 83/48
[2022-05-20 16:51] LABS: RBC,BODY FLUID 1000 cells/uL; WBC,BODY FLUID 757 cells/uL
[2022-05-20 18:30] VITALS: BP 83/48
[2022-05-20] MEDS ORDERED: ALPRAZOLAM 0.25 MG TAB PO PRN (18:30)
[2022-05-20 19:19] LABS: LYMPHOCYTES,BODY FLUID 30 %; MONO/MACROPHG,BODY FLUID 45 %; NEUTROPHILS,BODY FLUID 22 %; OTHER CELLS,BODY FLUID 3 %
[2022-05-20 20:00] VITALS: BP 83/48
[2022-05-21] VITALS (8 sets, daily range): BP systolic 85–131; BP diastolic 54–78
[2022-05-21 06:13] LABS: BASOPHILS # (AUTO) 0.1 (0.0-0.1); BASOPHILS % 0.8 % (0.0-1.0); EOSINOPHILS # (AUTO) 0.5 (0.0-0.4); EOSINOPHILS % 4.2 % (0.0-6.0); HEMATOCRIT 25.9 % (34.2-44.1); HEMOGLOBIN 9.2 g/dL (12.0-16.0); LYMPHOCYTES # (AUTO) 1.7 (1.0-3.2); LYMPHOCYTES % 15.5 % (18.0-39.1); MEAN CORPUSCULAR HEMOGLOBIN 30.2 pg (28-32); MEAN CORPUSCULAR HGB CONC 35.5 g/dL (31-35); MEAN CORPUSCULAR VOLUME 84.9 fL (81-99); MONOCYTES % 8.9 % (4.4-11.3); NEUTROPHILS # (AUTO) 7.7 (2.1-6.9); NEUTROPHILS % 70.1 % (38.7-80.0); PLATELET COUNT 442 x10e3/uL (140-360); RED BLOOD COUNT 3.05 x10e6/uL (3.6-5.1); RED CELL DISTRIBUTION WIDTH 13.7 % (11.7-14.4)
[2022-05-21 06:36] LABS: ANION GAP 13.4 mmol/L (8-16); CALCIUM 7.2 mg/dL (8.4-10.2); CREATININE, SERUM 1.39 mg/dL (0.57-1.11); POTASSIUM 3.4 mmol/L (3.5-5.1)
[2022-05-21] MEDS: INSULIN REGULAR, HUMAN 100 UNIT/1 ML SQ SCH ×4 (07:35→21:20)
[2022-05-21] MEDS ORDERED: ALPRAZOLAM 0.25 MG TAB PO SCH (09:00)
[2022-05-22] VITALS (7 sets, daily range): BP systolic 85–131; BP diastolic 45–71
[2022-05-22] MEDS: INSULIN REGULAR, HUMAN 100 UNIT/1 ML SQ SCH ×4 (07:30→20:51)
[2022-05-22] MEDS ORDERED: SODIUM CHLORIDE 0.9% 500ML 500 ML ONE (09:45)
[2022-05-22] MEDS: MIDODRINE 2.5 MG TAB PO SCH ×2 (13:09→17:14)
[2022-05-23] VITALS (9 sets, daily range): BP systolic 90–130; BP diastolic 57–108
[2022-05-23] MEDS: INSULIN REGULAR, HUMAN 100 UNIT/1 ML SQ SCH ×4 (07:30→23:00)
[2022-05-23 07:46] LABS: BASOPHILS # (AUTO) 0.1 (0.0-0.1); EOSINOPHILS # (AUTO) 0.6 (0.0-0.4); HEMATOCRIT 25.7 % (34.2-44.1); HEMOGLOBIN 9.1 g/dL (12.0-16.0); LYMPHOCYTES % 21.8 % (18.0-39.1); MEAN CORPUSCULAR HGB CONC 35.4 g/dL (31-35); MEAN CORPUSCULAR VOLUME 84.8 fL (81-99); MONOCYTES # (AUTO) 0.8 (0.2-0.8); MONOCYTES % 8.2 % (4.4-11.3); NEUTROPHILS # (AUTO) 5.7 (2.1-6.9); NEUTROPHILS % 62.6 % (38.7-80.0); PLATELET COUNT 426 x10e3/uL (140-360); RED BLOOD COUNT 3.03 x10e6/uL (3.6-5.1); RED CELL DISTRIBUTION WIDTH 13.6 % (11.7-14.4)
[2022-05-23 08:14] LABS: ALBUMIN/GLOBULIN RATIO 0.8 (0.8-2.0); ANION GAP 13.3 mmol/L (8-16); CREATININE, SERUM 1.25 mg/dL (0.57-1.11); POTASSIUM 3.3 mmol/L (3.5-5.1)
[2022-05-23] MEDS ORDERED: POTASSIUM CHLORIDE 20 MEQ TAB CR PO STA (08:29)
[2022-05-23] MEDS: MIDODRINE 2.5 MG TAB PO SCH ×2 (09:14→13:17)
[2022-05-23] MEDS ORDERED: ONDANSETRON HCL 4 MG ORAL DISINTEGRATING TAB PO PRN (14:00)
[2022-05-23] MEDS: MIDODRINE HCL 5 MG TABLET PO SCH (16:42)
[2022-05-24] VITALS (8 sets, daily range): BP systolic 95–145; BP diastolic 64–94
[2022-05-24] MEDS: INSULIN REGULAR, HUMAN 100 UNIT/1 ML SQ SCH ×4 (07:30→22:15)
[2022-05-24] MEDS: MIDODRINE HCL 5 MG TABLET PO SCH ×3 (09:08→17:00)
[2022-05-24] MEDS ORDERED: SODIUM CHLORIDE 0.9% 1000ML 1,000 ML IV SCH (21:30)
[2022-05-25] VITALS: BP 97/61
[2022-05-25 06:21] LABS: ANION GAP 13.7 mmol/L (8-16); CALCIUM 7.4 mg/dL (8.4-10.2); CREATININE, SERUM 0.83 mg/dL (0.57-1.11); POTASSIUM 3.7 mmol/L (3.5-5.1)
[2022-05-25 06:50] LABS: BASOPHILS # (AUTO) 0.1 (0.0-0.1); BASOPHILS % 0.8 % (0.0-1.0); EOSINOPHILS # (AUTO) 0.6 (0.0-0.4); EOSINOPHILS % 6.7 % (0.0-6.0); HEMATOCRIT 28.7 % (34.2-44.1); HEMOGLOBIN 9.4 g/dL (12.0-16.0); LYMPHOCYTES % 21.3 % (18.0-39.1); MEAN CORPUSCULAR HEMOGLOBIN 29.3 pg (28-32); MEAN CORPUSCULAR HGB CONC 32.8 g/dL (31-35); MEAN CORPUSCULAR VOLUME 89.4 fL (81-99); MONOCYTES # (AUTO) 0.8 (0.2-0.8); MONOCYTES % 8.5 % (4.4-11.3); NEUTROPHILS # (AUTO) 5.8 (2.1-6.9); NEUTROPHILS % 62.3 % (38.7-80.0); PLATELET COUNT 442 x10e3/uL (140-360); RED BLOOD COUNT 3.21 x10e6/uL (3.6-5.1); RED CELL DISTRIBUTION WIDTH 13.4 % (11.7-14.4)
[2022-05-25] MEDS: INSULIN REGULAR, HUMAN 100 UNIT/1 ML SQ SCH ×2 (07:30→12:19)
[2022-05-25 09:00] VITALS: BP 97/61
[2022-05-25 09:28] VITALS: BP 109/78
[2022-05-25] MEDS: MIDODRINE HCL 5 MG TABLET PO SCH (09:44)
[2022-05-25] MEDS ORDERED: MIDODRINE HCL5 MG PO (12:02)
[2022-05-25] MEDS ORDERED: BACTRIM DS TAB1 EACH PO (12:04)
[2022-05-25 12:38] VITALS: BP 114/65
== END 2022-05-25 13:37 | disposition home or self-care (01) | DRG 754 ==
LOC: ER 20:00 → ERHOLD 23:11 → MED/SURG3 05-19 04:30
PROVIDERS: ADMIT Family Medicine; ATTEND Family Medicine
PROC: 0W9G3ZZ Drainage of Peritoneal Cavity, Percutaneous Approach (ICD-10-PCS; principal; 2022-05-20)
DX: C57.7 Malignant neoplasm of other specified female genital organs (principal); G82.50 Quadriplegia, unspecified; N17.0 Acute kidney failure with tubular necrosis; N39.0 Urinary tract infection, site not specified; K76.6 Portal hypertension; E22.2 Syndrome of inappropriate secretion of antidiuretic hormone; E44.0 Moderate protein-calorie malnutrition; R18.0 Malignant ascites; N13.6 Pyonephrosis; E87.5 Hyperkalemia; I51.7 Cardiomegaly; I69.365 Other paralytic syndrome following cerebral infarction, bilateral; T46.5X5A Adverse effect of other antihypertensive drugs, initial encounter; B96.20 Unspecified Escherichia coli [E. coli] as the cause of diseases classified elsewhere; Z68.25 Body mass index [BMI] 25.0-25.9, adult; I12.9 Hypertensive chronic kidney disease with stage 1 through stage 4 chronic kidney disease, or unspecified chronic kidney disease; E11.22 Type 2 diabetes mellitus with diabetic chronic kidney disease; N18.9 Chronic kidney disease, unspecified; N95.2 Postmenopausal atrophic vaginitis; D64.9 Anemia, unspecified; E27.9 Disorder of adrenal gland, unspecified; Z20.822 Contact with and (suspected) exposure to COVID-19
CPT/HCPCS: 36415; 49083; 51700; 71045; 74176; 80048; 80053; 81001; 82040; 82140; 82378; 82550; 82553; 82948; 83605; 83735; 83930; 83935; 84133; 84157; 84300; 84484; 84550; 85025; 85610; 85730; 87040; 87070; 87086; 87186; 87205; 88112; 88300; 88305; 88342; 89051; 93005; 93306; 94799; 96361; 96372; 99251; 99285; C1729; J0696; J1817; J1940; J2405; J7030; J7040; J7042; J7050; J7070; J7799